=== PATIENT | female | born 1965 | race Caucasian/White ===

== ENCOUNTER → 2016-11-14 | Outpatient (CLI) | payer BC ==
[2014-11-04 15:06] VITALS: BP 125/84
--- NOTE | 2016-11-14 09:38 | RAD ---
HISTORY: Shortness of breath Study: Two views of the chest Comparison: April 08, 2015 Findings: The trachea is midline. The cardiac silhouette is unremarkable. Interstitial changes are again seen within both lungs similar to prior study. IMPRESSION: 1. No acute cardiopulmonary disease. Reported By:
--- NOTE | 2016-11-14 10:08 | RAD ---
HISTORY: Right foot pain Study: Right foot AP, lateral, oblique Comparison: None Findings: No acute cortical disruption or dislocation can be identified. No significant soft tissue swelling o r injury can be seen. The visualized portions of the talus and calcaneus are unremarkable. The joint s are normal. IMPRESSION: 1. Negative exam. Reported By:
--- NOTE | 2016-11-14 10:08 | RAD ---
HISTORY: Chronic left foot pain Study: AP and oblique and lateral views of the left foot Comparison: None Findings: There is a moderate plantar spur. There is mild narrowing of the 1st metatarsal phalangeal joint spac e with mild osteophyte formation. No acute cortical disruption or dislocation can be identified. No significant soft tissue swelling or injury can be seen. The visualized portions of the talus and saw caneus are unremarkable. IMPRESSION: 1. 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 Moderate plantar spur Reported By:
== END | disposition home or self-care (01) ==
LOC: RAD 08:49
PROVIDERS: ATTEND Nurse Practitioner Family
DX: R06.02 Shortness of breath (principal); M79.672 Pain in left foot; M19.072 Primary osteoarthritis, left ankle and foot; M77.52 Other enthesopathy of left foot and ankle
CPT/HCPCS: 71020; 73630